=== PATIENT | male | born 1955 | race Caucasian/White ===

== ENCOUNTER → 2018-09-04 15:50 | Outpatient (CLI) | payer BC, SELFPAY ==
[2018-09-04 16:01] LABS: Bacteria Urine None Seen; RBC Urine None Seen (0-5/HPF); WBC Urine None Seen (0-5/HPF)
[2018-09-04 17:17] LABS: Appearance Urine UA CLEAR; Bilirubin Urine UA NEGATIVE (NEGATIVE); Color Urine UA YELLOW; Glucose Urine UA NEGATIVE (Normal); Ketones Urine UA NEGATIVE (NEGATIVE); Leukocyte Esterase Urine UA NEGATIVE (NEGATIVE); Nitrite Urine UA NEGATIVE (Negative); Occult Blood Urine UA TRACE-INTACT (Negative); Protein Urine UA NEGATIVE (Negative); Urobilinogen Urine UA 0.2 E.U./dL (0.2)
[2018-09-04 17:43] LABS: BUN Creatinine Ratio 21.3 (6-22); Blood Urea Nitrogen 17 mg/dL (9-20); Calcium 9.6 mg/dL (8.4-10.2); Carbon Dioxide 27 mmol/L (22-32); Chloride 102 mmol/L (98-107); Estimated Glomerular Filt Rate > 60.0 mL/min (>60); Glucose 70 mg/dL (80-110); HEMOLYSIS < 15 (0-50); Hemoglobin A1C% w Est Avg Glu 4.8 % (4.0-6.0); Potassium 4.1 mmol/L (3.4-5.1); Sodium 144 mmol/L (137-145)
[2018-09-04 17:44] LABS: Add Manual Diff / Slide Review NO; Basophils Percent Auto 0.2 % (0-2); Eosinophils Percent Auto 6.5 % (2-4); Hematocrit 41.9 % (41-53); Hemoglobin 14.7 g/dL (13.5-17.5); Lymphocytes Percent Auto 22.4 % (25-40); Mean Corpuscular HGB Conc 35.2 % (30-36); Mean Corpuscular Hemoglobin 30.3 PG (26-34); Mean Corpuscular Volume 86.2 fL (80-100); Monocytes Percent Auto 8.1 % (3-14); Neutrophils Absolute Auto 3900 /uL (3000-5900); Neutrophils Percent Auto 62.8 % (50-75); Platelet Count 180 X10^3/uL (150-400); Red Blood Cell Count 4.86 X10^6/uL (4.5-5.9); Red Cell Distribution Width 12.9 % (11.6-14.8); White Blood Cell Count 6.2 X10^3/uL (4.5-11.0)
== END ==
PROVIDERS: Visit Provider Orthopaedic Surgery
DX: Z01.818 Encounter for other preprocedural examination (principal); Z01.812 Encounter for preprocedural laboratory examination; N39.9 Disorder of urinary system, unspecified; Z13.1 Encounter for screening for diabetes mellitus
CPT/HCPCS: 36415; 80048; 81001; 83036; 85025; 93005

== ENCOUNTER 2025-04-08 09:49 | Day surgery (SDC) | payer MEDICARE, SELFPAY ==
[2025-04-08 13:13] VITALS: BP 123/82; PULSE 66; RESP 18; TEMP 36.5; O2SAT 100
[2025-04-08] MEDS: LACTATED RINGERS 1,000 ML 42 ML IV (13:22)
--- NOTE | 2025-04-08 13:41 | PM.HP.IH.1 ---
History of Present Illness History of Present Illness Date Patient Seen: 04/08/25 Chief complaint: Screening Colonoscopy Narrative: Family history of colon cancer in both his mother and father need for colorectal cancer screening PFSH Social History Smoking Status: Never smoker Meds Home Medications and Allergies Home Medications ?Medication ?Instructions ?Recorded ?Confirmed ?Type azelastine 137 mcg (0.1 %) nasal 2 spray intranasal BID 03/13/25 03/13/25 History spray fluocinonide 0.05 % topical topical 03/13/25 03/13/25 History solution fluticasone 250 mcg-salmeterol 50 1 ea inhalation BID 03/13/25 04/08/25 History mcg/dose blistr powdr for inhalation fluticasone prop.50 mcg ea intranasal Allergies 03/13/25 03/13/25 History spray,suspen-sod.chloride 0.9% nasal spray kit ketotifen fumarate 0.025 % (0.035 drp EYE-BOTH 03/13/25 03/13/25 History %) eye drops ([place]) omeprazole 20 mg capsule,delayed 20 mg PO DAILY #90 caps 04/07/25 Rx release Allergies Allergy/AdvReac Type Severity Reaction Status Date / Time No Known Drug Allergies Allergy Verified 04/08/25 13:09 Exam Vital Signs (past 8 hours): - 04/08/25 13:13 Temperature 97.7 F Pulse Rate 66 Respiratory Rate 18 Blood Pressure 123/82 Pulse Oximetry 100 Oxygen Delivery Method Room Air Oxygen Delivery Method Room Air Narrative Exam Narrative: Oropharynx free of lesion Assessment & Plan Assessment & Plan narrative: Family history of colon cancer need for follow-up colonoscopy. Risks and alternatives have been explained. Time-Based Coding :: [TOTAL MINUTES] spent with patient and on the chart (including review of chart, obtaining history, exam, reviewing outside data, placing orders, documenting exam and treatment plan, and counseling patient) on [DATE]. [employer] Document charge(s): No
--- NOTE | 2025-04-08 13:42 | PM.OP.COLON ---
Operative Date/Time/Diagnoses Date of procedure: 04/08/25 Time of procedure: 14:34 Pre-op diagnosis: See indication and findings Post-op diagnosis: same Procedure & Clinicians Study performed: Colonoscopy Same procedure(s) as scheduled: Yes Indications: Family history of colon cancer Surgeon: Julio Cesar Campbell Procedure Notes Procedure in detail: After informed consent was obtained the patient was placed in left lateral decubitus position. The video colonoscope was introduced the rectum slowly advanced cecum. Preparation was good to fair. On slow withdrawal mucosa was carefully examined. The scope was removed. The patient tolerated procedure well. Blood loss none Complications none Sedation mac Findings 1. Scattered sigmoid diverticulosis 2. Otherwise negative colonoscopy to cecum Patient should have follow-up colonoscopy within 5 years
[2025-04-08 14:07] VITALS: BP 96/62; PULSE 75; RESP 15; TEMP 36.2; O2SAT 96
[2025-04-08 14:12] VITALS: BP 102/67; PULSE 71; RESP 20; TEMP 36.2; O2SAT 97
[2025-04-08 14:19] VITALS: BP 103/65; PULSE 66; RESP 15; TEMP 36.2; O2SAT 98
== END 2025-04-08 14:34 | disposition home or self-care (01) ==
PROVIDERS: PCP Family Medicine; Referring Provider Internal Medicine Gastroenterology; Visit Provider Internal Medicine Gastroenterology
PROC: 0DJD8ZZ Inspection of Lower Intestinal Tract, Via Natural or Artificial Opening Endoscopic (ICD-10-PCS; CPT 45378; principal; 2025-04-08 11:30)
DX: Z12.11 Encounter for screening for malignant neoplasm of colon (principal); Z80.0 Family history of malignant neoplasm of digestive organs; K57.30 Diverticulosis of large intestine without perforation or abscess without bleeding
CPT/HCPCS: G0105; J2704